=== PATIENT | male | born 1950 | race African-American/Black ===

== ENCOUNTER 2019-06-16 00:30 | Inpatient (IN) | payer MEDICARE, OTHER ==
[~2019-06-16] VITALS: Ht 170.2 cm; Wt 114.8 kg
[2019-06-16] MEDS ORDERED: ASPIRIN 81MG TABLET PO ONE (03:45)
[2019-06-16] MEDS: NITROGLYCERIN 0.4MG TABLET SL SL PRN ×2 (03:49→04:09)
[2019-06-16 03:52] LABS: BASOPHILS % 0.6 % (0.0-2.0); EOSINOPHILS % 1.4 % (0.0-5.0); HEMATOCRIT. 34.3 % (42.0-52.0); HEMOGLOBIN. 11.3 g/dL (14.0-18.0); LYMPHOCYTES % 14.3 % (20.0-50.0); MEAN CORPUSCULAR HEMOGLOBIN 28.3 pg (28.0-32.0); MEAN CORPUSCULAR VOLUME 85.8 fL (80.0-94.0); MEAN PLATELET VOLUME 8.9 fl (7.4-10.4); MONOCYTES % 9.1 % (2.0-8.0); NEUTROPHILS % 74.6 % (40.0-76.0); PLATELET 226 x1000/uL (130-400)
[2019-06-16 03:57] LABS: CHLORIDE 109 mEq/L (98-107)
[2019-06-16] MEDS ORDERED: SODIUM CHLORIDE 0.9% 1,000 ML IV NR (04:15)
[2019-06-16 04:56] LABS: CHLORIDE 109 mEq/L (98-107)
[2019-06-16 07:12] LABS: *AMPHETAMINES SCREEN URINE NEGATIVE (NEGATIVE); *BARBITURATES SCREEN URINE NEGATIVE (NEGATIVE); *BENZODIAZEPINES SCREEN URINE NEGATIVE (NEGATIVE); *COCAINE SCREEN URINE NEGATIVE (NEGATIVE)
[2019-06-16 07:13] LABS: CANNABINOID URINE SCREEN NEGATIVE (NEGATIVE); METHADONE URINE SCREEN NEGATIVE (NEGATIVE); OPIATES URINE SCREEN NEGATIVE (NEGATIVE)
[2019-06-16 07:49] LABS: PHENCYCLIDINE URINE SCREEN NEGATIVE (NEGATIVE)
[2019-06-16] MEDS ORDERED: SODIUM CHLORIDE 0.9% 500 ML IV ONE (08:13)
[2019-06-16 08:46] LABS: INR 0.9; PARTIAL THROMBOPLASTIN TIME 23.7 sec (23.4-31.0); PROTHROMBIN TIME 9.5 sec (9.6-11.0)
[2019-06-16] MEDS ORDERED: APIXABAN 5 MG TABLET PO SCH (11:30)
[2019-06-16] MEDS ORDERED: DEXTROSE 50% WATER 50ML SYRINGE IV PRN (12:30)
[2019-06-16 12:57] LABS: T4 FREE 0.98 ng/dL (0.76-1.46)
[2019-06-16] MEDS: BLOOD SUGAR DIAGNOSTIC STRIP TEST SCH ×3 (13:00→22:48)
[2019-06-16] MEDS: AMLODIPINE 10MG TABLET PO SCH (14:42)
[2019-06-16] MEDS: INSULIN LISPRO 100 UNITS/ML SUBCUT SCH ×3 (14:42→22:54)
[2019-06-16] MEDS: BENAZEPRIL 10MG TABLET PO SCH (14:42)
[2019-06-16] MEDS ORDERED: HYDRALAZINE 20MG/ML VIAL IV PRN ×2 (16:32→23:00)
[2019-06-16 17:50] LABS: CREATINE KINASE 321 IU/L (39-308)
[2019-06-16 17:51] LABS: CREATINE KINASE MB FRACTION 5.9 ng/mL (0.5-3.6)
[2019-06-16 23:00] VITALS: BP 186/92
[2019-06-16] MEDS ORDERED: FURO-151 PO (23:52)
[2019-06-16] MEDS ORDERED: LISI-653 PO (23:52)
[2019-06-16] MEDS ORDERED: METO-411 PO (23:52)
[2019-06-16] MEDS ORDERED: HYDR-4067 PO (23:54)
[2019-06-17] VITALS: BP 188/98
[2019-06-17] MEDS: CLONIDINE 0.1MG TABLET PO PRN ×2 (00:22→12:30)
[2019-06-17 04:00] VITALS: BP 158/72
[2019-06-17 06:10] LABS: CREATINE KINASE 333 IU/L (39-308)
[2019-06-17 06:11] LABS: CREATINE KINASE MB FRACTION 6.3 ng/mL (0.5-3.6)
[2019-06-17] MEDS: BLOOD SUGAR DIAGNOSTIC STRIP TEST SCH ×4 (06:18→20:10)
[2019-06-17] MEDS: INSULIN LISPRO 100 UNITS/ML SUBCUT SCH ×4 (06:28→20:34)
[2019-06-17 08:00] VITALS: BP 165/93
[2019-06-17] MEDS: AMLODIPINE 10MG TABLET PO SCH (08:23)
[2019-06-17] MEDS: BENAZEPRIL 10MG TABLET PO SCH (08:23)
[2019-06-17] MEDS: APIXABAN 5 MG TABLET PO SCH ×2 (10:10→17:35)
[2019-06-17 12:00] VITALS: BP 172/63
[2019-06-17 16:00] VITALS: BP 143/83
[2019-06-17] MEDS ORDERED: REGADENOSON 0.4 MG/5 ML IV SCH (16:00)
[2019-06-17] MEDS: HYDROCODONE/ACETAMINOPHEN 10/325MG TABLET PO PRN ×2 (16:27→23:28)
[2019-06-17 16:34] LABS: BASOPHILS % 0.5 % (0.0-2.0); EOSINOPHILS % 2.5 % (0.0-5.0); HEMATOCRIT. 35.9 % (42.0-52.0); HEMOGLOBIN. 11.8 g/dL (14.0-18.0); LYMPHOCYTES % 14.5 % (20.0-50.0); MEAN CORPUSCULAR HEMOGLOBIN 28.2 pg (28.0-32.0); MEAN CORPUSCULAR VOLUME 85.6 fL (80.0-94.0); MEAN PLATELET VOLUME 8.2 fl (7.4-10.4); NEUTROPHILS % 73.5 % (40.0-76.0); PLATELET 224 x1000/uL (130-400); RED BLOOD CELL COUNT 4.19 mill/uL (4.7-6.1); RED CELL DISTRIBUTION WIDTH 15.2 % (11.6-14.6)
[2019-06-17 16:39] LABS: PROTHROMBIN TIME 9.8 sec (9.6-11.0)
[2019-06-17 16:42] LABS: CHLORIDE 108 mEq/L (98-107)
[2019-06-17 19:59] VITALS: BP 156/70
[2019-06-18] VITALS: BP 155/74
[2019-06-18 04:00] VITALS: BP 148/88
[2019-06-18] MEDS: BLOOD SUGAR DIAGNOSTIC STRIP TEST SCH ×4 (06:08→21:52)
[2019-06-18] MEDS: INSULIN LISPRO 100 UNITS/ML SUBCUT SCH ×4 (06:23→21:00)
[2019-06-18 08:00] VITALS: BP 153/71
[2019-06-18] MEDS: APIXABAN 5 MG TABLET PO SCH ×2 (08:59→12:16)
[2019-06-18] MEDS: AMLODIPINE 10MG TABLET PO SCH ×2 (08:59→12:16)
[2019-06-18] MEDS: BENAZEPRIL 10MG TABLET PO SCH ×2 (08:59→12:16)
[2019-06-18] MEDS ORDERED: REGADENOSON 0.4 MG/5 ML IV ONE ×2 (09:44→10:43)
[2019-06-18 12:00] VITALS: BP 147/62
[2019-06-18] MEDS: HYDROCODONE/ACETAMINOPHEN 10/325MG TABLET PO PRN ×2 (13:28→23:03)
[2019-06-18] MEDS ORDERED: APIX5TAB PO (15:26)
[2019-06-18 16:00] VITALS: BP 138/63
[2019-06-18] MEDS ORDERED: INSULIN LISPRO 100 UNITS/ML SUBCUT NR (18:02)
[2019-06-18] MEDS ORDERED: INS NPH/REG HM 70-30 100 UNITS/ML 10ML VIAL (HUMULIN 70-30) SUBCUT ONE (18:15)
[2019-06-18] MEDS ORDERED: BENA10TA74 PO (20:23)
[2019-06-18] MEDS ORDERED: AMLO10TA80 PO (20:23)
[2019-06-18] MEDS ORDERED: INSU100I28 SQ (20:23)
[2019-06-18] MEDS ORDERED: INSULIN GLARGINE UD 100 UNITS/ML SYR SUBCUT SCH (22:00)
[2019-06-19] MEDS: BLOOD SUGAR DIAGNOSTIC STRIP TEST SCH ×2 (07:02→11:55)
[2019-06-19] MEDS: INSULIN LISPRO 100 UNITS/ML SUBCUT SCH ×2 (07:06→12:11)
[2019-06-19 08:00] VITALS: BP 149/62
[2019-06-19] MEDS: APIXABAN 5 MG TABLET PO SCH (08:27)
[2019-06-19 12:00] VITALS: BP 113/84
[2019-06-19] MEDS ORDERED: ATOR10TA MT (14:33)
[2019-06-19] MEDS ORDERED: INSU100I28 SQ (14:34)
[2019-06-19 14:53] VITALS: BP 113/84
[2019-06-23] MEDS ORDERED: APIXABAN 5 MG TABLET PO SCH (09:00)
== END 2019-06-19 16:55 | disposition home or self-care (01) | DRG 300 ==
LOC: ER 00:30 → EDBEDREQ 08:58 → ENRESERV 21:37 → 5WST 23:28
PROVIDERS: ADMIT Family Medicine; ATTEND Family Medicine
DX: I82.412 Acute embolism and thrombosis of left femoral vein (principal); E44.0 Moderate protein-calorie malnutrition; K21.9 Gastro-esophageal reflux disease without esophagitis; R07.89 Other chest pain; I25.10 Atherosclerotic heart disease of native coronary artery without angina pectoris; I12.9 Hypertensive chronic kidney disease with stage 1 through stage 4 chronic kidney disease, or unspecified chronic kidney disease; N18.9 Chronic kidney disease, unspecified; E78.5 Hyperlipidemia, unspecified; E66.9 Obesity, unspecified; E87.5 Hyperkalemia; M19.90 Unspecified osteoarthritis, unspecified site; E11.22 Type 2 diabetes mellitus with diabetic chronic kidney disease; I25.2 Old myocardial infarction; Z90.49 Acquired absence of other specified parts of digestive tract; Z95.1 Presence of aortocoronary bypass graft; Z68.39 Body mass index [BMI] 39.0-39.9, adult; Z59.0 Homelessness; Z79.899 Other long term (current) drug therapy
CPT/HCPCS: 36415; 71045; 78452; 78582; 80048; 80053; 80061; 80305; 82550; 82553; 82962; 83036; 83880; 84439; 84443; 84484; 85025; 85379; 93005; 93017; 93306; 93970; 99285; A9500; A9558; J0360; J1815; J2785; J7030